=== PATIENT | female | born 2000 | race African-American/Black ===

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

== ENCOUNTER 2018-09-14 12:00 | Emergency (ER) | payer MEDICAID ==
[~2018-09-14] VITALS: Ht 162.6 cm; Wt 90.0 kg
[2018-09-14] MEDS ORDERED: SODIUM CHLORIDE 0.9% 1,000 ML IV SCH (12:08)
[2018-09-14] MEDS ORDERED: ONDANSETRON HCL 4MG/2ML INJ IV ONE (12:15)
[2018-09-14] MEDS ORDERED: DIPHENHYDRAMINE 50MG/ML VIAL IV ONE (12:15)
[2018-09-14] MEDS ORDERED: FAMOTIDINE 20MG/2ML VIAL IV ONE (12:15)
[2018-09-14 12:42] LABS: BG BASE EXCESS -4.3 mmol/L (-2.0-2.0); BG CARBOXYHEMOGLOBIN 0.2 % (0.5-1.5); BG DEOXYHEMOGLOBIN 4.9 % (0.0-5.0); BG FRACTION INSPIRED OXYGEN 21; BG HCO3 ACT 20.3 mmol/L (22.0-26.0); BG METHEMOGLOBIN 0.4 % (0.0-1.5); BG OXYGEN SATURATION 95.1 % (92.0-98.5); BG OXYHEMOGLOBIN 94.5 % (94.0-97.0); BG PCO2 35.3 mmHg (35.0-45.0); BG PH 7.378 (7.350-7.450); BG PO2 81.4 mmHg (75.0-100.0); BG SAMPLE SITE RIGHT RADIAL; BG TOTAL HEMOGLOBIN 9.3 g/dL (12.0-18.0); BG VENT MODE ROOM AIR
[2018-09-14 13:32] LABS: BASOPHILS % 0.4 % (0.0-2.0); EOSINOPHILS % 2.6 % (0.0-5.0); HEMATOCRIT. 27.9 % (36.0-48.0); HEMOGLOBIN. 8.4 g/dL (12.0-16.0); LYMPHOCYTES % 65.6 % (20.0-50.0); MEAN CORPUSCULAR HEMOGLOBIN 20.7 pg (28.0-32.0); MEAN CORPUSCULAR VOLUME 68.5 fL (81.0-99.0); MONOCYTES % 4.1 % (2.0-8.0); NEUTROPHILS % 27.3 % (40.0-76.0); PLATELET 665 x1000/uL (130-400); RED BLOOD CELL COUNT 4.07 mill/uL (4.2-5.4); RED CELL DISTRIBUTION WIDTH 19.9 % (11.6-14.6)
[2018-09-14 13:33] LABS: PROTHROMBIN TIME 10.5 sec (9.1-11.1)
[2018-09-14 13:35] LABS: CHLORIDE 110 mEq/L (98-107)
[2018-09-14 13:56] LABS: PLATELET ESTIMATE INCREASED
[2018-09-14 14:29] LABS: HCG SCREEN NEGATIVE
[2018-09-14 14:33] VITALS: BP 134/71
[2018-09-14] MEDS ORDERED: LIDOCAINE HCL/PF 1% 2ML VIAL ONE (15:08)
== END 2018-09-14 14:46 | disposition home or self-care (01) ==
LOC: ER 12:00
DX: T78.1XXA Other adverse food reactions, not elsewhere classified, initial encounter (principal); R20.2 Paresthesia of skin; D64.9 Anemia, unspecified; D47.3 Essential (hemorrhagic) thrombocythemia; E87.6 Hypokalemia; E87.8 Other disorders of electrolyte and fluid balance, not elsewhere classified; R00.0 Tachycardia, unspecified; X58.XXXA Exposure to other specified factors, initial encounter
CPT/HCPCS: 36415; 36600; 80053; 82375; 82805; 84703; 85025; 85610; 93005; 96374; 96375; 99285; J1200; J2405; J3490

== ENCOUNTER 2020-10-17 12:00 | Emergency (ER) | payer MEDICAID ==
[~2020-10-17] VITALS: Ht 172.7 cm; Wt 120.0 kg
[2020-10-17] MEDS ORDERED: ACETAMINOPHEN 325MG TABLET PO ONE (12:45)
[2020-10-17] MEDS ORDERED: ONDANSETRON 4MG ODT PO ONE (13:15)
[2020-10-17 13:22] LABS: CLARITY URINE CLOUDY (CLEAR); COLOR URINE YELLOW (YELLOW); KETONES URINE 1+ (NEGATIVE); LEUKOCYTE ESTERASE URINE TRACE (NEGATIVE); NITRITE URINE NEGATIVE (NEGATIVE); OCCULT BLOOD URINE 3+ (NEGATIVE); PH URINE 5.5 (4.5-8.0); PROTEIN URINE 1+ (NEGATIVE); SPECIFIC GRAVITY URINE 1.017 (1.005-1.030); UROBILINOGEN URINE 0.2 E.U./dL (0.2-1.0)
[2020-10-17 14:05] VITALS: BP 136/80
== END 2020-10-17 14:15 | disposition home or self-care (01) ==
LOC: ER 12:00
DX: J06.9 Acute upper respiratory infection, unspecified (principal); R51.9 Headache, unspecified; I11.0 Hypertensive heart disease with heart failure; Z20.828 Contact with and (suspected) exposure to other viral communicable diseases; F17.200 Nicotine dependence, unspecified, uncomplicated
CPT/HCPCS: 71045; 81003; 81025; 87635; 99284; C9803

== ENCOUNTER 2022-11-20 13:14 | Emergency (ER) | payer MEDICAID ==
[~2022-11-20] VITALS: Ht 175.3 cm; Wt 120.0 kg
[2022-11-20 13:35] VITALS: BP 124/98
[2022-11-20] MEDS ORDERED: ACETAMINOPHEN 325MG TABLET PO ONE (14:00)
[2022-11-20 14:25] LABS: CLARITY URINE CLOUDY (CLEAR); COLOR URINE YELLOW (YELLOW); KETONES URINE TRACE (NEGATIVE); LEUKOCYTE ESTERASE URINE 1+ (NEGATIVE); NITRITE URINE NEGATIVE (NEGATIVE); OCCULT BLOOD URINE NEGATIVE (NEGATIVE); PROTEIN URINE NEGATIVE (NEGATIVE); SPECIFIC GRAVITY URINE 1.028 (1.005-1.030)
== END 2022-11-20 17:30 | disposition home or self-care (01) ==
LOC: ER 13:14
DX: A64 Unspecified sexually transmitted disease (principal); J40 Bronchitis, not specified as acute or chronic
CPT/HCPCS: 81003; 81025; 87591; 99283

== ENCOUNTER 2023-06-17 17:45 | Emergency (ER) | payer MEDICAID ==
[~2023-06-17] VITALS: Ht 172.7 cm; Wt 104.0 kg
[2023-06-17 17:56] VITALS: BP 135/87; PULSE 82; RESP 16; TEMP 98.6; O2SAT 99
[2023-06-17] MEDS ORDERED: AMOX-494 MT (18:46)
[2023-06-17] MEDS ORDERED: IBUP-2029 PO (18:46)
== END 2023-06-17 18:52 | disposition home or self-care (01) ==
LOC: ER 17:45
DX: J02.0 Streptococcal pharyngitis (principal)
CPT/HCPCS: 99283